=== PATIENT | male | born 1985 | race Caucasian/White ===

== ENCOUNTER 2017-06-14 16:07 | Emergency (ER) | payer OTHER ==
[~2017-06-14] VITALS: Ht 177.8 cm; Wt 84.4 kg
[2017-06-14] MEDS ORDERED: LAMICTAL200 M1 PO (16:16)
[2017-06-14] MEDS ORDERED: DILANTIN100 M1 PO ×2 (16:17)
[2017-06-14] MEDS ORDERED: METHADONE H5 MG/5 M2 PO (16:18)
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
[2017-06-14] MEDS ORDERED: IBUPROFEN800 M1 PO (17:01)
[2017-06-14 17:16] VITALS: BP 114/74
== END 2017-06-14 17:16 ==
LOC: ERH 16:07
DX: S29.012A Strain of muscle and tendon of back wall of thorax, initial encounter (principal); V49.40XA Driver injured in collision with unspecified motor vehicles in traffic accident, initial encounter; Y92.9 Unspecified place or not applicable